=== PATIENT | female | born 1985 | race African-American/Black ===

== ENCOUNTER 2016-10-24 19:43 | Emergency (ER) | payer MEDICAID ==
[~2016-10-24] VITALS: Ht 162.6 cm; Wt 71.0 kg
[~2016-10-24 19:43] MED LIST: FERR1TAB25 PO
[2016-10-24] MEDS ORDERED: IBUPROFEN 600MG TABLET PO STA (22:04)
[2016-10-24 22:50] LABS: BASOPHILS % 1.7 % (0.0-2.0); EOSINOPHILS % 3.8 % (0.0-5.0); HEMATOCRIT. 26.8 % (36.0-48.0); HEMOGLOBIN. 8.7 g/dL (12.0-16.0); LYMPHOCYTES % 32.7 % (20.0-50.0); MEAN CORPUSCULAR HEMOGLOBIN 22.5 pg (28.0-32.0); MEAN CORPUSCULAR VOLUME 69.5 fL (81.0-99.0); MEAN PLATELET VOLUME 8.5 fl (7.4-10.4); NEUTROPHILS % 53.8 % (40.0-76.0); PLATELET 358 x1000/uL (130-400); RED BLOOD CELL COUNT 3.85 mill/uL (4.2-5.4); RED CELL DISTRIBUTION WIDTH 19.4 % (11.6-14.6)
[2016-10-24 22:54] LABS: CHLORIDE 107 mEq/L (98-107)
[2016-10-24 23:01] LABS: HCG SCREEN NEGATIVE
[2016-10-24 23:02] LABS: CARBON DIOXIDE 26 mEq/L (21-32)
[2016-10-24 23:03] LABS: TROPONIN I < 0.02 ng/mL (0.00-0.04)
[2016-10-24 23:06] LABS: PLATELET ESTIMATE NORMAL
[2016-10-24 23:46] VITALS: BP 122/80
== END 2016-10-24 23:47 | disposition home or self-care (01) ==
LOC: ER 22:30
DX: R07.89 Other chest pain (principal); D50.9 Iron deficiency anemia, unspecified; R42 Dizziness and giddiness
CPT/HCPCS: 36415; 71010; 80053; 83690; 84484; 84703; 85025; 99285; Z7610

== ENCOUNTER 2016-11-05 19:14 | Emergency (ER) | payer MEDICAID ==
[~2016-11-05] VITALS: Ht 162.6 cm; Wt 70.4 kg
[2016-11-05 22:27] VITALS: BP 123/76
== END 2016-11-05 22:40 | disposition home or self-care (01) ==
LOC: ER 22:24
DX: L73.9 Follicular disorder, unspecified (principal)
CPT/HCPCS: 99283

== ENCOUNTER 2017-02-14 17:56 | Emergency (ER) | payer MEDICAID ==
[~2017-02-14] VITALS: Ht 162.6 cm; Wt 69.0 kg
[2017-02-14] MEDS ORDERED: SODIUM CHLORIDE 0.9% 1,000 ML IV ONE (22:56)
[2017-02-14 23:32] LABS: BASOPHILS % 0.5 % (0.0-2.0); EOSINOPHILS % 1.8 % (0.0-5.0); HEMATOCRIT. 31.4 % (36.0-48.0); HEMOGLOBIN. 10.2 g/dL (12.0-16.0); LYMPHOCYTES % 26.9 % (20.0-50.0); MEAN CORPUSCULAR HEMOGLOBIN 23.5 pg (28.0-32.0); MEAN CORPUSCULAR VOLUME 72.2 fL (81.0-99.0); MONOCYTES % 6.9 % (2.0-8.0); NEUTROPHILS % 63.9 % (40.0-76.0); PLATELET 394 x1000/uL (130-400); RED BLOOD CELL COUNT 4.35 mill/uL (4.2-5.4); RED CELL DISTRIBUTION WIDTH 19.8 % (11.6-14.6)
[2017-02-14 23:37] LABS: CLARITY URINE CLEAR (CLEAR); COLOR URINE YELLOW (YELLOW); GLUCOSE URINE NEGATIVE (NEGATIVE); KETONES URINE NEGATIVE (NEGATIVE); LEUKOCYTE ESTERASE URINE 3+ (NEGATIVE); NITRITE URINE NEGATIVE (NEGATIVE); OCCULT BLOOD URINE NEGATIVE (NEGATIVE); PH URINE 6.5 (4.5-8.0); PROTEIN URINE NEGATIVE (NEGATIVE); SPECIFIC GRAVITY URINE 1.015 (1.005-1.030); UROBILINOGEN URINE 0.2 E.U./dL (0.2-1.0)
[2017-02-14 23:37] LABS: PROTHROMBIN TIME 10.5 sec (9.4-11.6)
[2017-02-14 23:43] LABS: CARBON DIOXIDE 23 mEq/L (21-32); CHLORIDE 104 mEq/L (98-107)
[2017-02-15] MEDS ORDERED: CEFTRIAXONE 1 G PREMIX 50 ML IV ONE (00:30)
[2017-02-15] MEDS ORDERED: ONDANSETRON HCL 4MG/2ML VIAL IV STA (00:49)
[2017-02-15] MEDS ORDERED: KETOROLAC 30MG/ML VIAL IV STA (00:49)
[2017-02-15 01:06] VITALS: BP 124/76
== END 2017-02-15 02:02 | disposition home or self-care (01) ==
LOC: ER 18:09
DX: N30.00 Acute cystitis without hematuria (principal); R19.7 Diarrhea, unspecified; R42 Dizziness and giddiness; R53.1 Weakness
CPT/HCPCS: 36415; 80053; 81001; 81025; 85025; 85610; 87086; 96361; 96365; 96375; 99285; J0696; J1885; J2405; J7030; Z7610

== ENCOUNTER 2017-06-03 19:34 | Emergency (ER) | payer MEDICAID ==
[~2017-06-03] VITALS: Ht 162.6 cm; Wt 95.0 kg
[2017-06-03] MEDS ORDERED: IBUPROFEN 600MG TABLET PO ONE (22:45)
[2017-06-03] MEDS ORDERED: ACETAMINOPHEN 500MG TABLET PO ONE (22:45)
[2017-06-04 00:01] VITALS: BP 126/81
== END 2017-06-04 00:11 | disposition home or self-care (01) ==
LOC: ER 19:34
DX: J06.9 Acute upper respiratory infection, unspecified (principal); R11.0 Nausea; R19.7 Diarrhea, unspecified
CPT/HCPCS: 87804; 99284

== ENCOUNTER 2018-02-19 17:52 | Emergency (ER) | payer MEDICAID ==
[~2018-02-19] VITALS: Ht 162.6 cm; Wt 98.0 kg
[2018-02-19 19:46] LABS: BASOPHILS % 2.2 % (0.0-2.0); EOSINOPHILS % 1.7 % (0.0-5.0); HEMATOCRIT. 27.1 % (36.0-48.0); HEMOGLOBIN. 8.4 g/dL (12.0-16.0); LYMPHOCYTES % 33.6 % (20.0-50.0); MEAN CORPUSCULAR HEMOGLOBIN 20.5 pg (28.0-32.0); MEAN PLATELET VOLUME 8.7 fl (7.4-10.4); MONOCYTES % 7.9 % (2.0-8.0); NEUTROPHILS % 54.6 % (40.0-76.0); PLATELET 561 x1000/uL (130-400); RED BLOOD CELL COUNT 4.11 mill/uL (4.2-5.4); RED CELL DISTRIBUTION WIDTH 21.1 % (11.6-14.6)
[2018-02-19 19:50] LABS: CLARITY URINE CLOUDY (CLEAR); COLOR URINE YELLOW (YELLOW); KETONES URINE NEGATIVE (NEGATIVE); LEUKOCYTE ESTERASE URINE 3+ (NEGATIVE); NITRITE URINE NEGATIVE (NEGATIVE); OCCULT BLOOD URINE NEGATIVE (NEGATIVE); PROTEIN URINE 1+ (NEGATIVE); SPECIFIC GRAVITY URINE 1.017 (1.005-1.030)
[2018-02-19 19:51] LABS: CHLORIDE 106 mEq/L (98-107)
[2018-02-19 20:05] LABS: PLATELET ESTIMATE INCREASED
[2018-02-19 21:08] VITALS: BP 114/76
== END 2018-02-19 21:24 | disposition home or self-care (01) ==
LOC: ER 17:52
DX: D53.9 Nutritional anemia, unspecified (principal); N30.00 Acute cystitis without hematuria; R03.0 Elevated blood-pressure reading, without diagnosis of hypertension; N92.0 Excessive and frequent menstruation with regular cycle
CPT/HCPCS: 36415; 81025; 99284

== ENCOUNTER 2023-01-06 12:28 | Emergency (ER) | payer MEDICAID ==
[~2023-01-06] VITALS: Ht 167.6 cm; Wt 81.0 kg
[2023-01-06 12:45] VITALS: BP 122/76; PULSE 92; RESP 19; TEMP 98.3; O2SAT 100
== END 2023-01-06 15:11 | disposition home or self-care (01) ==
LOC: ER 12:28
DX: U07.1 COVID-19 (principal); R05.9 Cough, unspecified
CPT/HCPCS: 99281